=== PATIENT | male | born 1980 | race Caucasian/White ===

== ENCOUNTER 2024-05-21 23:53 | Emergency (ER) | payer MEDICAID ==
[~2024-05-21] VITALS: Ht 172.7 cm; Wt 120.5 kg
[~2024-05-21 23:53] MED LIST: NO HOME MEDS
[2024-05-22 00:02] VITALS: BP 131/93; PULSE 118; RESP 19; TEMP 97.8; O2SAT 97
[2024-05-22] MEDS ORDERED: CEPH-585 PO (00:08)
== END 2024-05-22 00:20 ==
LOC: ER 23:54
DX: Z02.89 Encounter for other administrative examinations (principal); L03.032 Cellulitis of left toe; L03.031 Cellulitis of right toe; F15.90 Other stimulant use, unspecified, uncomplicated
CPT/HCPCS: 82948; 99283